=== PATIENT | male | born 1965 | race Caucasian/White ===

== ENCOUNTER 2019-10-26 17:27 | Inpatient (IN) | payer MEDICARE ==
[~2019-10-26] VITALS: Ht 175.2 cm; Wt 61.3 kg
[2019-10-26 17:27] VITALS: BP 106/67
[2019-10-26 18:17] LABS: BASO % 0.2 % (0.0-1.0); EOS % 0.1 % (1.0-4.0); HEMATOCRIT 46.2 % (42.0-52.0); HEMOGLOBIN 15.4 g/dl (14.0-18.0); LYMPH # 1.3 10*3/uL (1.3-4.4); LYMPH % 7.5 % (27.0-41.0); MEAN CELL VOLUME 95.5 fl (80.0-94.0); MEAN CORPUSCULAR HGB 31.8 pg (27.0-31.0); MEAN CORPUSCULAR HGB CONC 33.3 g/dl (33.0-37.0); MEAN PLATELET VOLUME 8.3 fl (9.6-12.3); MONO % 5.8 % (3.0-9.0); NEUT # 14.4 10*3/uL (2.3-7.9); PLATELET COUNT AUTOMATED 203 10*3/uL (130-400); RED BLOOD COUNT 4.84 10*6/uL (4.50-5.90); RED CELL DISTRI WIDTH 12.9 % (0-14.5); WHITE BLOOD COUNT 16.7 10*3/uL (4.8-10.8)
[2019-10-26 18:29] LABS: ACT PARTIAL THROMBO TIME 24.2 SECONDS (20.0-32.1); INTERNATIONAL NORM RATIO 0.9 (2.0-3.5)
[2019-10-26 18:42] LABS: ALBUMIN 3.8 gm/dl (3.1-4.5); ALKALINE PHOSPHATASE 62 U/L (45-117); BUN 13 mg/dl (7-24); CHLORIDE 108 mmol/L (98-107); CREATININE 1.09 mg/dL (0.70-1.30); POTASSIUM 3.7 mmol/L (3.5-5.1); SGOT/AST 11 IU/L (3-35); SGPT/ALT 16 U/L (12-78); SODIUM 140 mmol/L (136-145); TOTAL PROTEIN 7.3 gm/dL (6.4-8.2)
[2019-10-26 18:48] LABS: LIPASE 2542 U/L (73-393)
[2019-10-26 18:49] LABS: TROPONIN I < 0.015 ng/ml (<0.045)
--- NOTE | 2019-10-26 18:52 | NUR ---
CRITICAL LA 3.0 DR JORDAN. GIFTY NETTLES RN
[2019-10-26 19:48] VITALS: BP 99/64
[2019-10-26 21:10] VITALS: BP 109/70
--- NOTE | 2019-10-26 21:10 | NUR ---
A 53, admitted to , under the services of MICH Strickland DO with a diagnosis of OVERDOSE. Chief complaint is OVERDOSE. Patient arrived via stretcher from ER. Monitor applied. Initial assessment completed. Vital signs taken and recorded. MICH STRICKLAND DO notified of admission to the unit. Orders received. See assessment for past medical history, medications and allergies. Patient and/or family oriented to unit. [facility]. Clothing/patient valuable form completed. SOULEYMANE TIAN
[2019-10-26] MEDS ORDERED: DIVALPROEX SOD500 MG PO (21:15)
[2019-10-26] MEDS ORDERED: TRAZODONE100 MG PO (21:16)
[2019-10-26] MEDS ORDERED: ARIPIPRAZOLE10 MG PO (21:16)
[2019-10-26] MEDS ORDERED: SERTRALINE HYDR50 MG PO (21:16)
--- NOTE | 2019-10-26 21:17 | NUR ---
MED REC COMPLETED WITH PATIENT ALERT AND ORIENTED TO PERSON PLACE AND TIME. STATES HE DOES NOT REMEMBER THE LAST TIME HE TOOK HIS PRESCRIBED MEDICATIONS BECAUSE HE HAS NOT BEEN HOME
[2019-10-27] VITALS (9 sets, daily range): BP systolic 88–119; BP diastolic 58–73
[2019-10-27 00:47] LABS: URINE AMPHETAMINES < 1000 (1000ng/ml); URINE BARBITURATES < 200 (200ng/ml); URINE BENZODIAZEPINES < 200 (200ng/ml); URINE CANNABINOIDS (THC) > 50 (50ng/ml); URINE COCAINE < 300 (300ng/ml); URINE METHADONE < 300 (300ng/ml); URINE OPIATES < 300 (300ng/ml)
[2019-10-27 00:48] LABS: URINE PHENCYCLIDINE < 25 (25ng/ml)
[2019-10-27 01:06] LABS: BILIRUBIN NEGATIVE (NEGATIVE); BLOOD TRACE-INTACT (NEGATIVE); CLARITY CLEAR (CLEAR); COLOR YELLOW (YELLOW); GLUCOSE NEGATIVE (NEGATIVE); KETONE NEGATIVE (NEGATIVE); LEUKO ESTERASE NEGATIVE (NEGATIVE); NITRITE NEGATIVE (NEGATIVE); PH 5.5 (5.0-9.0); SPECIFIC GRAVITY 1.025 (1.005-1.030); UROBILINOGEN 0.2 E.U./dl (0.2-1.0)
[2019-10-27 01:12] LABS: RBC 0-2 rbc/hpf (0-2); WBC 0-2 wbc/hpf (0-5)
--- NOTE | 2019-10-27 05:52 | NUR ---
DR VERA AWARE OF PATIENT C/O HEADACHE ABOVE THE RIGHT EYE, LIGHT HEADEDNESS, AND MANUAL BLOOD PRESSURE OF 88/62. STATES TO GIVE HIM ANOTHER LITER BOLUS AND TYLENOL
[2019-10-27 06:00] LABS: BASO % 0.1 % (0.0-1.0); EOS # 0.1 10*3/uL (0.0-0.4); EOS % 1.4 % (1.0-4.0); HEMATOCRIT 36.4 % (42.0-52.0); LYMPH # 2.5 10*3/uL (1.3-4.4); LYMPH % 30.1 % (27.0-41.0); MEAN CELL VOLUME 94.5 fl (80.0-94.0); MEAN CORPUSCULAR HGB 31.2 pg (27.0-31.0); MEAN PLATELET VOLUME 8.6 fl (9.6-12.3); MONO # 0.5 10*3/uL (0.1-1.0); MONO % 6.4 % (3.0-9.0); NEUT # 5.2 10*3/uL (2.3-7.9); NEUT % 61.8 % (47.0-73.0); PLATELET COUNT AUTOMATED 145 10*3/uL (130-400); RED BLOOD COUNT 3.85 10*6/uL (4.50-5.90); RED CELL DISTRI WIDTH 13.1 % (0-14.5); WHITE BLOOD COUNT 8.4 10*3/uL (4.8-10.8)
[2019-10-27 06:13] LABS: BUN 8 mg/dl (7-24); CHLORIDE 115 mmol/L (98-107); CHOLESTEROL 129 mg/dL (<200); CREATININE 0.79 mg/dL (0.70-1.30); PHOSPHOROUS 2.3 mg/dL (2.5-4.9); POTASSIUM 4.1 mmol/L (3.5-5.1); SODIUM 143 mmol/L (136-145); TRIGLYCERIDES 208 mg/dl (<150); VLDL CHOLESTEROL 42 mg/dL (6-40)
[2019-10-27 06:16] LABS: HDL CHOLESTEROL 28 mg/dl (40-60); LDL CHOLESTEROL 59 mg/dL (9-159)
--- NOTE | 2019-10-27 06:41 | NUR ---
DR VERA AWARE OF CRITICAL CALCIUM AND REPEAT BLOOD PRESSURE
[2019-10-27 07:09] LABS: VITAMIN D, 25-HYDROXY 22.2 ng/mL (30-100)
--- NOTE | 2019-10-27 09:00 | NUR ---
Business Analytics Analyst in to talk to patient. Patient states lives at home with alone. There are few steps in the home. Physician: none at present [facility] Home health services: none Patient's level of ADLs: INDEPENDENT Patient has working utilities: all working DME: none Follow-up physician's appointment after d/c: will be made by hospitalist nurse director with doctor of patient's choice Does patient want to access PORTAL?: no Discharge plan discussed with patient, discussed with him the possibility he was homeless, he stated he lives in a home alone in [facility], he has running water and electricity, he states he is independent in adls and ambulation, but doesn't drive, he has friends take him where every he needs to go, patient stated he was attempting to get a ride back to [place], he also stated he didn't have any home needs at this time. RUBI REARDON
--- NOTE | 2019-10-27 09:47 | NUR ---
DIESEL ENGINE PIPE FITTER spoke with the patient. Patient stated he resides in [place], [place] by himself. Patient stated he was out mikie riding around with a friend and that is how he ended up in [place]. Patient stated that he is unsure if he has insurance or not. Patient stated he was notified in August of insurance being cancelled. Patient stated he has not attempted to resolve this issue as of yet. Michelle in [facility] did attempt to see the patient about this and she was not able to speak with him, but will reach out to him again. Patient stated that he is unsure of how he will get back to [place]. Patient stated that he does have funds available for a cab as they loaded onto his card today. DIESEL ENGINE PIPE FITTER reached out to [facility] [employer], a Cab would cost $65.00. Patient stated he needed an appointment with his mental health provider Vivian Krishna. DIESEL ENGINE PIPE FITTER reached out to [facility] [phone]. Patient has broken the last 3 appointments with their agency (1-Aug & 2-Sep). Patient was supposed to see the provider last week. Patient was previously in a [facility] facility and they had called to confirm the appointment as part of the patients discharge and the patient No Called No Showed. Patients provider is going on Maternity Leave in Nov, patient would have to be seen through a provider in [place], [place]. DIESEL ENGINE PIPE FITTER will speak with the patient and have him schedule this appointment as [place] is 30-40 minutes from the patients home. -ERA Kennedy
--- NOTE | 2019-10-27 14:10 | NUR ---
ROBAXIN AND TYLENOL GIVEN FOR C/O BILAT LEG PAIN/CRAMPS. WILL MONITOR. CALL LIGHT WITHIN REACH.
--- NOTE | 2019-10-27 14:59 | NUR ---
SLEEPING, NO SXS OF DISTRESS NOTED. CALL LIGHT WITHIN REACH. TYLENOL AND ROBAXIN SEEM EFFECTIVE FOR EARLIER COMPLAINTS. WILL CONTINUE TO MONITOR.
--- NOTE | 2019-10-27 19:53 | NUR ---
PATIENT RESTING IN BED WITH NO S/S OF DISTRESS. AWAKENS EASILY. BED IN LOWEST POSITION, CALL LIGHT IN REACH
--- NOTE | 2019-10-27 21:19 | NUR ---
MEDICATED WITH PRN TYLENOL FOR C/O BACK AND NECK PAIN. WILL MONITOR
[2019-10-28] VITALS: BP 134/77
--- NOTE | 2019-10-28 04:22 | NUR ---
24 HR chart check completed.
[2019-10-28 07:27] LABS: BASO % 0.3 % (0.0-1.0); EOS # 0.2 10*3/uL (0.0-0.4); HEMATOCRIT 39.8 % (42.0-52.0); HEMOGLOBIN 13.5 g/dl (14.0-18.0); LYMPH # 2.2 10*3/uL (1.3-4.4); LYMPH % 31.2 % (27.0-41.0); MEAN CELL VOLUME 92.8 fl (80.0-94.0); MEAN CORPUSCULAR HGB 31.5 pg (27.0-31.0); MEAN CORPUSCULAR HGB CONC 33.9 g/dl (33.0-37.0); MEAN PLATELET VOLUME 9.1 fl (9.6-12.3); MONO # 0.5 10*3/uL (0.1-1.0); NEUT # 4.1 10*3/uL (2.3-7.9); NEUT % 58.4 % (47.0-73.0); PLATELET COUNT AUTOMATED 175 10*3/uL (130-400); RED BLOOD COUNT 4.29 10*6/uL (4.50-5.90); RED CELL DISTRI WIDTH 12.8 % (0-14.5)
[2019-10-28 07:33] LABS: BUN 8 mg/dl (7-24); CHLORIDE 112 mmol/L (98-107); CREATININE 0.78 mg/dL (0.70-1.30); POTASSIUM 4.3 mmol/L (3.5-5.1); SODIUM 142 mmol/L (136-145)
[2019-10-28 08:00] VITALS: BP 124/72
[2019-10-28 12:00] VITALS: BP 119/71; BP 99/51
--- NOTE | 2019-10-28 15:08 | NUR ---
Discharge instructions reviewed with patient/family. Patient receptive and verbalizes understanding. Follow-up care arranged. Written instructions given to patient/family. MOLINA ROJAS
== END 2019-10-28 15:08 | disposition home or self-care (01) | DRG 917 ==
LOC: ED 17:27 → 4E 20:12 → EDHOLD 20:12 → 4E 20:22
PROVIDERS: Emergency Medicine; Internal Medicine; Student in an Organized Health Care Education/Training Program; ADMIT Internal Medicine
DX: T40.601A Poisoning by unspecified narcotics, accidental (unintentional), initial encounter (principal); R65.11 Systemic inflammatory response syndrome (SIRS) of non-infectious origin with acute organ dysfunction; T40.5X1A Poisoning by cocaine, accidental (unintentional), initial encounter; T40.1X1A Poisoning by heroin, accidental (unintentional), initial encounter; E87.8 Other disorders of electrolyte and fluid balance, not elsewhere classified; R73.9 Hyperglycemia, unspecified; R74.8 Abnormal levels of other serum enzymes; F10.10 Alcohol abuse, uncomplicated; F11.10 Opioid abuse, uncomplicated; I25.10 Atherosclerotic heart disease of native coronary artery without angina pectoris; E83.41 Hypermagnesemia; J43.9 Emphysema, unspecified; F17.210 Nicotine dependence, cigarettes, uncomplicated; Z71.6 Tobacco abuse counseling; Y92.89 Other specified places as the place of occurrence of the external cause; Z88.7 Allergy status to serum and vaccine; I25.2 Old myocardial infarction; Z86.73 Personal history of transient ischemic attack (TIA), and cerebral infarction without residual deficits; Z80.8 Family history of malignant neoplasm of other organs or systems; Z82.5 Family history of asthma and other chronic lower respiratory diseases; Z79.899 Other long term (current) drug therapy